=== PATIENT | male | born 1945 | race Caucasian/White ===

== ENCOUNTER → 2023-07-18 09:35 | Outpatient (CLI) | payer MEDICARE, BC, SELFPAY ==
[2023-07-18 09:45] LABS: Microscopic, Urine URINE MICROSCOPIC (MICROSCOPIC)
--- NOTE | 2023-07-18 10:04 | XR_ITS ---
FINAL REPORT CLINICAL HISTORY: pain, limited ROM, s/p fall COMPARISON: None FINDINGS: LEFT SHOULDER 3 views of the left shoulder were obtained. There is no acute fracture or dislocation. Visualized joint spaces are normally aligned. Calcification superior to the greater tuberosity is probably calcific or ossific tendinitis. Soft tissues are unremarkable. IMPRESSION: No acute bony abnormality. Reviewed, Interpreted and Dictated by Galindo Hudson MD Transcribed by Nicky Dugan Authenticated and . [facility]
--- NOTE | 2023-07-18 10:04 | XR_ITS ---
FINAL REPORT CLINICAL HISTORY: pain, limited ROM, s/p fall COMPARISON: None FINDINGS: RIGHT WRIST Three views demonstrate no acute fracture or dislocation. The visualized joint spaces are normally aligned. There are moderate hypertrophic changes at the basilar joint. The soft tissues are unremarkable. IMPRESSION: No acute bony abnormality. Reviewed, Interpreted and Dictated by Galindo Hudson MD Transcribed by Nicky Dugan Authenticated and [facility]
--- NOTE | 2023-07-18 10:04 | XR_ITS ---
FINAL REPORT CLINICAL HISTORY: back pain s/p fall, gait distur COMPARISON: None FINDINGS: 3 views of the lumbar spine were obtained. There is no evidence of fracture or dislocation. There is minimal spondylolisthesis of L4 on L5. Indentation of the superior endplate of L2 appears chronic. IMPRESSION: No acute bony abnormality. Reviewed, Interpreted and Dictated by Galindo Hudson MD Transcribed by Nicky Dugan Authenticated and [facility]
--- NOTE | 2023-07-18 10:04 | XR_ITS ---
FINAL REPORT CLINICAL HISTORY: pain, limited ROM, s/p fall COMPARISON: None FINDINGS: 2 views of the right forearm were obtained. There is no acute fracture or dislocation. The joints are intact. There are no soft tissue abnormalities. IMPRESSION: No acute process. Reviewed, Interpreted and Dictated by Galindo Hudson MD Transcribed by Nicky Dugan Authenticated and [facility]
--- NOTE | 2023-07-18 10:04 | XR_ITS ---
FINAL REPORT CLINICAL HISTORY: pain, limited ROM, s/p fall COMPARISON: None FINDINGS: LEFT WRIST Four views demonstrate no acute fracture or dislocation. The visualized joint spaces are normally aligned. There are moderate hypertrophic changes of the basilar joint. The soft tissues are unremarkable. IMPRESSION: No acute bony abnormality. Reviewed, Interpreted and Dictated by Galindo Hudson MD Transcribed by Nicky Dugan Authenticated and [facility]
--- NOTE | 2023-07-18 10:04 | XR_ITS ---
FINAL REPORT CLINICAL HISTORY: pain, limited ROM, s/p fall COMPARISON: None FINDINGS: Three views of the right knee were obtained. There is no acute fracture or dislocation. There are small osteophytes along the undersurface of the patella. Defect along the articular surface of the medial femoral condyle measuring 8 mm is probably due to osteochondral lesion. There is no soft tissue abnormality. IMPRESSION: No acute fracture Reviewed, Interpreted and Dictated by Galindo Hudson MD Transcribed by Nicky Dugan Authenticated and [facility]
--- NOTE | 2023-07-18 10:04 | XR_ITS ---
FINAL REPORT CLINICAL HISTORY: pain, limited ROM, s/p fall COMPARISON: None FINDINGS: RIGHT HIP Two views of the right hip demonstrate no acute fracture or dislocation. The joint spaces appear normal. The visualized bony structures are well aligned. No soft tissue abnormality is seen. IMPRESSION: No acute bony abnormality. Reviewed, Interpreted and Dictated by Galindo Hudson MD Transcribed by Nicky Dugan Authenticated and [facility]
--- NOTE | 2023-07-18 10:04 | XR_ITS ---
FINAL REPORT CLINICAL HISTORY: pain, limited ROM, s/p fall COMPARISON: None FINDINGS: Two views of the left humerus were obtained. There is no acute fracture or dislocation. Calcification superior to the greater tuberosity is probably calcific or ossific tendinitis. The joint spaces are well preserved. There is no acute soft tissue abnormality. IMPRESSION: No acute abnormality identified. Reviewed, Interpreted and Dictated by Galindo Hudson MD Transcribed by Nicky Dugan Authenticated and [facility]
--- NOTE | 2023-07-18 10:04 | XR_ITS ---
FINAL REPORT CLINICAL HISTORY: pain, limited ROM, s/p fall COMPARISON: None FINDINGS: 2 views of the left forearm were obtained. There is no acute fracture or dislocation. The joints are intact. There are no soft tissue abnormalities. IMPRESSION: No acute process. Reviewed, Interpreted and Dictated by Galindo Hudson MD Transcribed by Nicky Dugan Authenticated and [facility]
--- NOTE | 2023-07-18 10:04 | XR_ITS ---
FINAL REPORT CLINICAL HISTORY: pain s/p fall COMPARISON: None FINDINGS: Three views of the facial bones were obtained. There is no acute fracture or dislocation. The paranasal sinuses are well aerated. No air-fluid levels identified. There is no soft tissue abnormality. Metallic dental bridge is noted. IMPRESSION: No acute bony abnormality identified. Reviewed, Interpreted and Dictated by Galindo Hudson MD Transcribed by Nicky Dugan Authenticated and [facility]
--- NOTE | 2023-07-18 10:04 | XR_ITS ---
FINAL REPORT CLINICAL HISTORY: pain, limited ROM, s/p fall COMPARISON: None FINDINGS: Three views of the right elbow were obtained. There is no acute fracture or dislocation. The joint spaces are well preserved. There is no acute soft tissue abnormality. IMPRESSION: No acute abnormality identified. Reviewed, Interpreted and Dictated by Galindo Hudson MD Transcribed by Nicky Dugan Authenticated and [facility]
--- NOTE | 2023-07-18 10:04 | XR_ITS ---
FINAL REPORT CLINICAL HISTORY: pain, limited ROM, s/p fall COMPARISON: None FINDINGS: RIGHT SHOULDER Three views demonstrate no acute fracture or dislocation. The visualized joint spaces are normally aligned. The soft tissues are unremarkable. IMPRESSION: No acute process. Reviewed, Interpreted and Dictated by Galindo Hudson MD Transcribed by Nicky Dugan Authenticated and [facility]
--- NOTE | 2023-07-18 10:04 | XR_ITS ---
FINAL REPORT CLINICAL HISTORY: neck pain, falls COMPARISON: None FINDINGS: 5 views of the cervical spine, including flexion and extension, were obtained. There is no fracture present. There is no malalignment. There is moderate disc space narrowing at C4-5, C5-6, and C6-7. There is moderate anterior osteophyte formation. No evidence of instability on flexion or extension views. IMPRESSION: No acute process. Reviewed, Interpreted and Dictated by Galindo Hudson MD Transcribed by Nicky Dugan Authenticated and [facility]
--- NOTE | 2023-07-18 10:04 | XR_ITS ---
FINAL REPORT CLINICAL HISTORY: pain, limited ROM, s/p fall COMPARISON: None FINDINGS: Three views of the left elbow were obtained. There is no acute fracture or dislocation. The joint spaces are well preserved. There is no joint effusion. There is no acute soft tissue abnormality. IMPRESSION: No acute abnormality identified. Reviewed, Interpreted and Dictated by Galindo Hudson MD Transcribed by Nicky Dugan Authenticated and [facility]
--- NOTE | 2023-07-18 10:04 | XR_ITS ---
FINAL REPORT CLINICAL HISTORY: back pain s/p fall, gait distur COMPARISON: None FINDINGS: Three views of the thoracic spine were obtained. There is no fracture present. There is no malalignment. There is mild anterior osteophyte formation in the midthoracic spine. Vertebral body heights are normal. IMPRESSION: No acute process. Reviewed, Interpreted and Dictated by Galindo Hudson MD Transcribed by Nicky Dugan Authenticated and [facility]
--- NOTE | 2023-07-18 10:04 | XR_ITS ---
FINAL REPORT CLINICAL HISTORY: pain, limited ROM, s/p fall COMPARISON: None FINDINGS: Two views of the right humerus were obtained. There is no acute fracture or dislocation. The joint spaces are well preserved. There is no acute soft tissue abnormality. IMPRESSION: No acute abnormality identified. Reviewed, Interpreted and Dictated by Galindo Hudson MD Transcribed by Nicky Dugan Authenticated and [facility]
--- NOTE | 2023-07-18 10:04 | XR_ITS ---
FINAL REPORT CLINICAL HISTORY: pain, limited ROM, s/p fall COMPARISON: None FINDINGS: LEFT HIP: 3 views of the left hip including an AP view of the pelvis demonstrate no acute fracture or dislocation. The joint spaces appear normal. The visualized bony structures are well aligned. No soft tissue abnormality is seen. IMPRESSION: No acute bony abnormality. Reviewed, Interpreted and Dictated by Galindo Hudson MD Transcribed by Nicky Dugan Authenticated and [facility]
--- NOTE | 2023-07-18 10:04 | XR_ITS ---
FINAL REPORT CLINICAL HISTORY: pain, limited ROM, s/p fall COMPARISON: None FINDINGS: LEFT KNEE 3 views of the left knee were obtained. There is no acute fracture or dislocation. Visualized joint spaces are normally aligned. There are small osteophytes along the undersurface of the patella. There is mild osteoarthritis. Soft tissues are unremarkable. IMPRESSION: No acute bony abnormality. Reviewed, Interpreted and Dictated by Galindo Hudson MD Transcribed by Nicky Dugan Authenticated and [facility]
[2023-07-18 10:23] LABS: Basophils # 0.1 K/mm3 (0-0.2); Basophils % 0.8 % (0.1-2.0); Eosinophils # 0.1 K/mm3 (0.0-0.4); Eosinophils % 2.2 % (0.1-12.0); Hematocrit 45.6 % (42.0-52.0); Lymphocytes % 15.5 % (10-50); Mean Corpuscular HGB Conc 32.9 g/dL (31.8-35.4); Mean Corpuscular Volume 97.4 fl (80-94); Mean Platelet Volume 7.7 fl (7.4-10.4); Monocytes # 0.4 K/mm3 (0.1-1.0); Monocytes % 6.3 % (1.7-9.3); Neutrophils # 4.7 K/mm3 (1.8-7.8); Neutrophils % 75.1 % (37.0-80.0); Platelet Count 278 K/mm3 (142-424); Red Blood Count 4.68 M/mm3 (4.60-6.20); Red Cell Distribution Width 13.4 % (11.5-17.5); White Blood Count 6.2 K/mm3 (4.8-10.8)
[2023-07-18 11:14] LABS: Alanine Aminotransferase 26 U/L (12-78); Albumin Level 4.3 g/dl (3.5-5.0); Albumin/Globulin Ratio 1.6 (1.1-1.8); Alkaline Phosphatase 50 U/L (38-126); Anion Gap 10.7 mEq/L (5-15); Aspartate Amino Transferase 35 U/L (17-59); Bilirubin,Total 0.7 mg/dl (0.2-1.3); Blood Urea Nitrogen 17 mg/dl (9-20); Calcium 8.7 mg/dl (8.4-10.2); Carbon Dioxide 27 mmol/L (22.0-30.0); Chloride 94 mmol/L (98-107); Estimated Glomerular Filt Rate 65 ml/min (>60); GFR (African American) 79 ML/MIN (>60); Globulin 2.7 g/dL (1.3-3.2); Glucose 90 mg/dl (74-100); Magnesium 2.1 mg/dl (1.6-2.3); Potassium 4.7 mmoL/L (3.5-5.1); Sodium 127 mmol/L (136-145)
[2023-07-18 11:19] LABS: C-Reactive Protein 4.8 mg/L (0-4)
[2023-07-18 11:45] LABS: Thyroid Stimulating Hormone 0.95 uIU/mL (0.465-4.68)
[2023-07-18 12:16] LABS: Erythrocyte Sedimentation Rate 18 mm/hr (0-20)
[2023-07-18 12:21] LABS: Folate 5.59 ng/mL
[2023-07-18 12:39] LABS: Appearance,Urine CLEAR (Clear); Bilirubin,Urine Negative (Negative); Blood, Urine Negative (Negative); Color,Urine YELLOW (Yellow); Glucose,Urine (UA) Negative (Negative); Ketones,Urine Negative (Negative); Leukocyte Esterase,Urine Negative (Negative); Nitrate,Urine Negative (Negative); Protein,Urine Negative (Negative); Specific Gravity, Urine 1.015 (1.005-1.030); Urobilinogen,Urine 0.2 EU/dl (0.2)
[2023-07-18 12:41] LABS: Vitamin B12 > 1000 pg/mL (239-931)
[2023-07-18 12:56] LABS: Amphetamine/Metha Screen,Urine Negative ng/ml (<1000)
[2023-07-18 12:57] LABS: Barbiturates Screen,Urine Negative ng/ml (<200)
[2023-07-18 12:58] LABS: Benzodiazepines Screen,Urine Negative ng/ml (<200); Cannabinoid Screen,Urine Negative ng/ml (<50)
[2023-07-18 12:59] LABS: Bacteria,Urine Trace /lpf; Cocaine Screen,Urine Negative ng/ml (<300); Squamous Epithelial Cell,Urine Occasional #/hpf (0-5)
[2023-07-18 13:00] LABS: Methadone Screen,Urine Negative ng/ml (<300); Opiate Screen,Urine Negative ng/ml (<300)
[2023-07-18 13:01] LABS: Phencyclidine Screen,Urine Negative ng/ml (<25)
[2023-07-19 12:36] LABS: Rapid Plasma Reagin Ab Titer Non Reactive titer (NonRea<1:1)
[2023-07-19 14:11] LABS: Anti-Centromere B Antibodies <0.2 AI (0.0-0.9); Anti-DNA (DS) Ab Qn <1 IU/mL (0-9); Anti-Jo-1 <0.2 AI (0.0-0.9); Antichromatin Antibodies <0.2 AI (0.0-0.9); Antiscleroderma-70 Antibodies <0.2 AI (0.0-0.9); RNP Antibodies <0.2 AI (0.0-0.9); Sjogren's Anti-SS-A 4.5 AI (0.0-0.9); Sjogren's Anti-SS-B <0.2 AI (0.0-0.9)
[2023-07-23 21:27] LABS: Anti-Centromere B Abs Charge YES; Anti-DNA (DS) Ab Charge YES; Anti-Jo-1 Charge YES; Antichromatin Abs Charge YES; Antinuclear Antibodies (ANA) Positive; Antiscleroderma-70 Abs Charge YES; RNP Antibodies Charge YES; Sjogren's Anti-SS-A Ab Charge YES; Sjogren's Anti-SS-B Ab Charge YES; Smith Antibodies Charge YES
== END ==
PROVIDERS: PCP Nurse Practitioner; Visit Provider Nurse Practitioner Family
DX: G93.40 Encephalopathy, unspecified (principal); M19.90 Unspecified osteoarthritis, unspecified site; M25.511 Pain in right shoulder; M25.512 Pain in left shoulder; M25.551 Pain in right hip; M25.552 Pain in left hip; M25.561 Pain in right knee; M25.562 Pain in left knee; M54.2 Cervicalgia; M54.9 Dorsalgia, unspecified; M79.601 Pain in right arm; M79.602 Pain in left arm; R26.9 Unspecified abnormalities of gait and mobility; R29.6 Repeated falls; R41.3 Other amnesia
CPT/HCPCS: 36415; 70150; 72052; 72072; 72100; 73030; 73060; 73080; 73090; 73110; 73502; 73562; 80053; 80305; 81001; 82607; 82746; 83735; 84425; 84443; 85025; 85651; 86038; 86140; 86225; 86235; 86593